=== PATIENT | female | born 1945 | race Caucasian/White ===

== ENCOUNTER 2024-08-18 18:02 | Inpatient (IN) | payer OTHER ==
[~2024-08-18] VITALS: Ht 157.5 cm; Wt 79.8 kg
[2024-08-18] MEDS: 0.9%NACL 1000ML 1,000 ML IV ONE (18:39)
[2024-08-18 18:44] LABS: BASOPHILS # (AUTO) 0.03 K/uL (0.00-0.20); BASOPHILS % (AUTO) 0.4 % (0.0-5.0); HEMATOCRIT 44.7 % (36-48); IMMATURE GRANULOCYTE ABSOLUTE 0.02 K/uL (0-1); LYMPHOCYTES # (AUTO) 0.5 K/uL (1.0-4.8); LYMPHOCYTES % (AUTO) 7.9 % (21.0-51.0); MEAN CORPUSCULAR HEMOGLOBIN 30.8 pg (27.0-33.0); MEAN CORPUSCULAR HGB CONC 34.2 g/dL (32.0-36.0); MEAN CORPUSCULAR VOLUME 90.1 fL (79-99); MONOCYTES # (AUTO) 0.7 K/uL (0.1-1.0); MONOCYTES % (AUTO) 11.1 % (3.0-13.0); NEUTROPHILS # (AUTO) 5.4 K/uL (1.8-7.7); NEUTROPHILS % (AUTO) 80.3 % (40.0-77.0); PLATELET COUNT (AUTO) 212 K/uL (130-400); RED BLOOD CELL COUNT(AUTO) 4.96 MIL/uL (4.00-5.50); RED CELL DISTRIBUTION WIDTH 13.7 % (11.0-15.5); WHITE BLOOD COUNT (AUTO) 6.7 K/uL (4.8-10.8)
--- NOTE | 2024-08-18 18:52 | ERN ---
General Chief Complaint: Weakness Stated Complaint: WEAKNESS Time Seen by MD: 18:05 History of Present Illness Initial Comments 79-year-old female presents for a near syncopal episode. Patient reports that she was not eating today or drank because she was not feeling well. She tried to stand and she had a near syncopal episode. She fell back. No injuries or hitting her head. She reports she felt he had to get up. She denies any fevers, sore throat, cough congestion, vomiting or diarrhea. She reports that she thinks she is dehydrated. She does have a significant history of breast cancer treated with radiation. She does not take any medications currently. Allergies: Coded Allergies: No Known Drug Allergies (Unverified Allergy, Unknown, 08/18/24) Past Medical History Past Medical History: Cancer Past Surgical History: Other Surgical History Other: R BREAST CANCER ROS Dictation CONSTITUTIONAL: Weakness and fatigue HEAD/FACE: No signs of trauma. EENT: No eye pain, no blurred vision, no tearing, no double vision, no ear pain, no ear discharge, no nose pain, no nasal congestion, no throat pain, no throat swelling, no mouth pain. RESPIRATORY: No cough, no orthopnea, no SOB, no stridor, no wheezing. CARDIOVASCULAR: No chest pain, no edema, no palpitations, no syncope. GASTROINTESTINAL/ABDOMINAL: No abdominal pain, no constipation, no diarrhea, no nausea, no vomiting. GENITOURINARY: No abnormal discharge, no dysuria, no frequent urination, no hematuria. No complaints of pain in the genitals. MUSCULOSKELETAL: No back pain, no gout, no joint pain, no joint swelling, no muscle pain, no muscle stiffness, no neck pain. INTEGUMENTARY: No change in color, no change in hair/nails, no dryness, no lesion, no lumps, no rash. NEUROLOGICAL/PSYCH: No anxiety, not depressed, no emotional problem, no headache, no numbness, no pre-existing deficit, no history of seizures, no tremors, no weakness. HEMATOLOGIC/LYMPHATIC: Not anemic, no history of blood clots, no apparent bleeding, no bruising, glands not swollen. All Systems Negative, Except as Noted. Physical Exam Physical Exam Dictation VITAL SIGNS: Reviewed. GENERAL APPEARANCE: Alert, oriented x3, no acute distress. HEAD AND FACE: Non-traumatic. EYES: PERRL, pink conjunctivas, eyelid no trauma, anterior chamber clear. EARS: Pinnas intact and no signs of trauma or erythema. Ear canals clear and no discharge. TMs no erythema. NOSE: No discharge, no bleeding. OROPHARYNX: Mouth normal, teeth no caries, tongue pink. Pharynx clear, no erythema. Tonsils no exudates, no abscesses noted. Mucous membrane moist. NECK: Supple, non-tender, no thyromegaly, no masses, no JVD, no bruits. BREAST: Deferred. CHEST: No tenderness, no crepitus, no paradoxical movement, no retractions. LUNGS: Clear, well-ventilated, symmetric, no rales, no wheezing, no rhonchi, no stridor, good breath sounds bilaterally. HEART: Regular rate, regular rhythm, no murmur, no gallops. VASCULAR: No peripheral edema. ABDOMEN: Soft, positive bowel sounds, nondistended, no guarding, nontender, no rebound, no masses no hepatomegaly, no splenomegaly, no Luna's sign, no hernias. RECTAL: Deferred. GENITAL: Deferred. NEUROLOGICAL: Normal speech, gross motor function intact, gross sensory function intact. MUSCULOSKELETAL: Neck nontender, full range of motion, back nontender, full range of motion. EXTREMITIES: Nontender, full range of motion. SKIN: Color pink, dry, no turgor, no rash, no lacerations, no abrasions, no contusions. LYMPHATICS: Deferred. Results Laboratory and Microbiology Lab and Micro Result Laboratory Tests Test 08/18/24 18:26 08/18/24 19:48 08/18/24 20:05 White Blood Count 6.7 K/uL (4.8-10.8) Red Blood Count 4.96 MIL/uL (4.00-5.50) Hemoglobin 15.3 g/dL (12.0-16.0) Hematocrit 44.7 % (36-48) Mean Corpuscular Volume 90.1 fL (79-99) Mean Corpuscular Hemoglobin 30.8 pg (27.0-33.0) Mean Corpuscular Hemoglobin Concent 34.2 g/dL (32.0-36.0) Red Cell Distribution Width 13.7 % (11.0-15.5) Platelet Count 212 K/uL (130-400) Mean Platelet Volume 9.6 fL (7.5-10.5) Immature Granulocyte % (Auto) 0.3 % (0-1) Neutrophils (%) (Auto) 80.3 % (40.0-77.0) H Lymphocytes (%) (Auto) 7.9 % (21.0-51.0) L Monocytes (%) (Auto) 11.1 % (3.0-13.0) Eosinophils (%) (Auto) 0.0 % (0.0-8.0) Basophils (%) (Auto) 0.4 % (0.0-5.0) Neutrophils # (Auto) 5.4 K/uL (1.8-7.7) Lymphocytes # (Auto) 0.5 K/uL (1.0-4.8) L Monocytes # (Auto) 0.7 K/uL (0.1-1.0) Eosinophils # (Auto) 0.00 K/uL (0.00-0.70) Basophils # (Auto) 0.03 K/uL (0.00-0.20) Absolute Immature Granulocyte (auto 0.02 K/uL (0-1) Nucleated Red Blood Cells 0.0 % (0.0-0.19) White Cell Morphology Comment See comments Prothrombin Time 11.5 SEC (9.6-11.6) Prothromb Time International Ratio 1.03 (0.85-1.15) Sodium Level 135 mmol/L (136-145) L Potassium Level 3.8 mmol/L (3.5-5.1) Chloride Level 99 mmol/L (101-111) L Carbon Dioxide Level 25 mmol/L (21-32) Blood Urea Nitrogen 12 mg/dL (7-18) Creatinine 0.9 mg/dL (0.5-1.0) Glomerular Filtration Rate Calc 65 mL/min (>90) Random Glucose 162 mg/dL (70-105) H Total Calcium 9.2 mg/dL (8.5-10.1) Total Creatine Kinase 405 U/L (21-232) *H Troponin I High Sensitivity 131.1 ng/L (4-50) *H 127 ng/L (4-50) *H B-Type Natriuretic Peptide 354 pg/mL (0-100) H Influenza Type A Antigen Positive For Type A Influenza Type B Antigen Negative For Type B SARS-CoV-2, RNA, NAAT NEGATIVE SARS CoV-2 Group A Streptococcus Rapid negative (NEGATIVE) Labs Reviewed?: Yes EKG/XRAY/US/CT/MRI EKG Comment 08/18/2024 time 18:34 vent rate 99 sinus rhythm pr [address] wave elevation or depression X-RAY Comment [facility] [address] [place] [address] IMAGING REPORT Signed PATIENT: BAHMAN LOCKE MR#: [id number] : 1945 SEX: F AGE: 79 LOCATION: [facility] ORDER 16 STATUS: [facility] ER REPORT#: [id number] SERVICE 16 REASON: CP ORDERING PHYSICIAN: YAKOV LUCIANO DO PROCEDURE: CXR1VW - CHEST 1VW CHEST 1VW REASON: CP COMPARISON: None. FINDINGS: Single view of the chest was obtained. Lungs are clear. Heart size is normal. There is no pulmonary vascular congestion. Mediastinum and bony thorax appear unremarkable. IMPRESSION: 1. Normal single view chest x-ray. DICTATED BY: LIVIA CAO MD DATE: 08/18/241856 ELECTRONICALLY SIGNED BY: LIVIA CAO MD DATE: 08/18/241901 MDM MDM: Differential diagnosis: NSTEMI, ACS, elevated CK, dehydration Rationale: Tests considered and ordered secondary to shared decision making include: labs, ECG and radiology Previous outside records reviewed: Old ER visits. Risk of complication and/or morbidity or mortality of patient management: None Medications-Per medication reconciliation Need for hospitalization: Patient does meet criteria for hospitalization. Need for emergency major/minor surgery: No There are no social concerns with this patient. Prescription drug management Prescriptions will include symptomatic care Patient's prior external medical records from other ER visits were reviewed by me as indicated. Prior testing and results from previous visits were reviewed. Prior tests were taken into account with medical decision making and resource utilization, independent historian/historians were used to obtain complete medic al history. I independently interpreted the test that were performed, results were reviewed by me and considered findings on radiology if ordered. Medical management and examination interpretation discussions were had by me with other qualified healthcare professionals as indicated for the patient's care. Patient will be admitted under the care of hospitalist group. ED Course Orders Procedure Category Date Status Time Cardiac Panel LAB 08/18/24 Complete 18:13 Cbc With Differential LAB 08/18/24 Complete 18:13 Basic Metabolic Panel LAB 08/18/24 Complete 18:13 12 Lead Ekg Tracing- EKG 08/18/24 Resulted Technical 18:13 0.9%Nacl 1000ml (Ns PHA 08/18/24 Complete 1000ml) 18:30 Chest 1vw RAD 08/18/24 Resulted 18:17 Troponin I High LAB 08/18/24 Complete Sensitivity 19:23 Covid Rna Naat LAB 08/18/24 Complete 19:28 Influenza Type A & B, LAB 08/18/24 Complete Rapid 19:28 Rapid (Group A Strep) LAB 08/18/24 Complete 19:28 Aspirin 325mg Ec Tab PHA 08/18/24 Complete (Aspirin 325mg Ec T 19:30 B-Type Natriuretic LAB 08/18/24 Complete Peptide 19:29 Prothrombin Time With LAB 08/18/24 Complete INR 19:29 Vital Signs(Adult CPOE 08/18/24 Transmitted Hospitalist) 20:22 Nurse To Enter Home CPOE 08/18/24 Transmitted Medication 20:22 Admit Orders ADM 08/18/24 Transmitted 20:22 Vital Signs(Adult CPOE 08/18/24 Transmitted Hospitalist) 20:22 Nurse To Enter Home CPOE 08/18/24 Transmitted Medication 20:22 Admit Orders ADM 08/18/24 Transmitted 20:22 Edm Admit Bridge Order ADM 08/18/24 Transmitted 20:22 Current Medications Medications (Trade) Dose Ordered Sig/Veronica Route PRN Reason Start Time Stop Time Status Last Admin Dose Admin Aspirin (Aspirin 325mg Ec Tab) 325 mg ONCE ONCE PO 08/18/24 19:30 08/18/24 19:31 DC 08/18/24 19:37 Sodium Chloride 1,000 ml @ 0 mls/hr ONCE ONCE IV 08/18/24 18:30 08/18/24 18:31 DC 08/18/24 18:39 Vital Signs Date Time Temp Pulse Resp B/P (MAP) Pulse Ox O2 Delivery O2 Flow Rate FiO2 08/18/24 19:22 96 18 153/80 96 Room Air* 0 21 08/18/24 18:06 100.2 103 15 153/85 95 Room Air* 0 21 08/18/24 18:04 100.2 103 15 153/85 95 Room Air 0 DX & DISP Disposition: Inpatient Decision to Admit Time: 20:11 Departure Impression: Primary Impression: ACS (acute coronary syndrome) Additional Impressions: Dehydration, Elevated CK, Syncope, Elevated troponin I level Critical Time: 30 minutes (Critical Care Procedure NoteAuthorized and Performed by: meTotal critical care time: Approximately 36 minutesDue to a high probability of clinically significant, life threatening deterioration, the patient required my highest level of preparedness to intervene emergently and I personally spent this critical care time directly and personally managing the patient. This critical care time included obtaining a history; examining the patient; pulse oximetry; ordering and review of studies; arranging urgent treatment with development of a management plan; evaluation of patient's response to treatment; frequent reassessment; and, discussions with other providers.This critical care time was performed to assess and manage the high probability of imminent, life-threatening deterioration that could result in multi-organ failure. It was exclusive of separately billable procedures and treating other patients and teaching time.Please see MDM section and the rest of the note for further information on patient assessment and treatment.) Condition: Stable Referrals: NONE (PCP) YAKOV LUCIANO DO Aug 18, 2024 18:52 SASHA KNUTSON MD Aug 18, 2024 20:00
[2024-08-18 19:01] LABS: CREATININE 0.9 mg/dL (0.5-1.0); POTASSIUM 3.8 mmol/L (3.5-5.1)
--- NOTE | 2024-08-18 19:02 | HMCIMG ---
CHEST 1VW REASON: CP COMPARISON: None. FINDINGS: Single view of the chest was obtained. Lungs are clear. Heart size is normal. There is no pulmonary vascular congestion. Mediastinum and bony thorax appear unremarkable. IMPRESSION: 1. Normal single view chest x-ray.
[2024-08-18] MEDS: ASPIRIN 325MG EC TAB PO ONE (19:37)
[2024-08-18 19:47] LABS: INR 1.03 (0.85-1.15); PROTHROMBIN TIME 11.5 SEC (9.6-11.6)
[2024-08-18 20:49] LABS: RAPID GROUP A STREP negative (NEGATIVE)
[2024-08-18 20:50] LABS: SARS-CoV-2, RNA, NAAT NEGATIVE SARS CoV-2 (NEGATIVE)
--- NOTE | 2024-08-18 20:53 | HP ---
History of Present Illness Reason for Visit: syncope History of Present Illness Ms. bazzi is a 79-year-old female that was seen and examined today on 08/18/2024. Patient is a good historian and personal health. Patient reported to the emergency department physician that she came over here for syncope. Right now she is saying that she came to the hospital for a complaint of cough. Onset was two days ago. Location is to lungs. Duration is on and off. Symptoms are aggravated with physical activity. Character is described as nonproductive. There was no alleviating factors. Today in the emergency department troponin 131.1, CK 405, patient positive for influenza a, no urinalysis has been collected or sent to lab, chest x-ray is unremarkable. Past Medical History ADDITIONAL PAST MEDICAL HISTORY: [Hypertension] SOCIAL HISTORY: [Negative for smoking, alcohol use, drug use] SURGICAL HISTORY: [Right mastectomy] Review of Systems General: No Fever, No Chills, No Night Sweats, No Fatigue, No Malaise, No Appetite, No Other HEENT: No Head Aches, No Visual Changes, No Eye Pain, No Ear Pain, No Dysphasia, No Sinus Congestion, No Post Nasal Drip, No Sore Throat, No Other Pulmonary: No Dyspnea; Cough; No Pleuritic Chest Pain, No Other Cardiovascular: Lt Headedness; No: Chest Pain, Palpitations, Orthopnea, Paroxysmal Noc. Dyspnea, Edema, Other Gastrointestinal: No: Nausea, Vomiting, Abdominal Pain, Diarrhea, Constipation, Melena, Hematochezia, Other Genitourinary: No Dysuria, No Frequency, No Incontinence, No Hematuria, No Retention, No Other Musculoskeletal: No: other, neck pain, shoulder pain, arm pain, back pain, hand pain, leg pain, foot pain Skin: No Urticaria, No Rash, No Other Neurological: No: Weakness, Numbness, Incoordination, Change in speech, Confusion, Seizures, Other Allergies: Coded Allergies: No Known Drug Allergies (Unverified Allergy, Unknown, 08/18/24) Exam Vital Signs Vital Signs Date Time Temp Pulse Resp B/P (MAP) Pulse Ox O2 Delivery O2 Flow Rate FiO2 08/18/24 19:22 96 18 153/80 96 Room Air* 0 21 08/18/24 18:06 100.2 General Appearance: Alert, Oriented X3, Cooperative, No acute distress HEENT: Atraumatic, EOMI Respiratory: Clear to auscultation, Normal air movement, NL respiratory effort Cardiovascular: Regular rate, Regular rhythm, Normal S1, Normal S2 Abdominal: Normal bowel sounds, Soft, No tenderness Extremities: No edema Skin: No significant lesion Neuro: Normal speech, Strength at 5/5 X4 ext, Sensation intact, Cranial nerves 3-12 NL Psych/Mental Status: Mental status NL, Mood NL, Thoughts/Content NL Assessment/Plan ASSESSMENT: [ Syncope, POA Influenza A positive Elevated troponin, POA Elevated CK, POA] PLAN: [ ] Admit patient to medical-surgical floor as inpatient status. Place patient on telemetry monitoring. Check orthostatic vital signs. Neuro checks every 4 hours. Fall precautions 2D echo in a.m.. Ultrasound carotid duplex. Start Tamiflu 75 mg by mouth twice daily. Supportive measures with Tylenol and guaifenesin DuoNebs every 6 hours Administer aspirin 162 mg by mouth times 1 dose Continue aspirin 81 mg by mouth once daily Nitropaste 0.5 inches anterior chest wall every 8 hours Trend troponin every 6 hours x 3 sets Supplemental oxygen to maintain O2 saturation greater than 92% Consult cardiology if any elevation in troponin or troponin uptrending IV fluid maintenance therapy lactated Ringer's at 75 mL/HR. Recheck CK in a.m. GI prophylaxis, famotidine 20 mg by mouth once daily. DVT prophylaxis, Lovenox 40 mg subcutaneously once daily. ADVANCED CARE PLANNING 1. Which of the following were discussed? Hospice Care - Yes Therapeutic options - Yes Advance Directives - Yes- patient states that she does not have any advance directives in place at this time, however her neighbor Alma can make decisions for her if she becomes unable. Other discussions - patient wishes to remain a full code at this time 2. Discussed with who? Patient 3. Voluntary nature of this service was explained to the patient? Yes 4. Amount of time spent - ___ 16 minutes ____ 5. Reviewed by Physician? (if this service was performed by NPP) Yes This document was generated in part using voice recognition software, occasional wrong word or sound alike substitutions may have occurred due to the inherent limitations of voice recognition software. Read the chart carefully and recognize using context, where the substitutions have occurred. Although every effort was made to edit the content, sales rep and typing errors may occur ATTESTATION BY PHYSICIAN I have seen and examined the patient. I reviewed the documentation, medical decision making, and treatment plan as noted by the mid-level provider above. I agree with the findings and plan of care. [facility] Aug 18, 2024 20:53
[2024-08-18] MEDS ORDERED: morPHINE 2 MG SYG IVP PRN (21:00)
[2024-08-18] MEDS ORDERED: ondanSETRON 4MG INJ IV PRN (21:00)
[2024-08-18] MEDS ORDERED: hydrALAZine 20MG/ML VIAL IV PRN (21:00)
--- NOTE | 2024-08-18 21:05 | EKG ---
[facility] Test Date: 2024-08-18 Test Time: 18:34:26 Pat Name: BAHMAN LOCKE Department: [facility] Room: 430 Gender: F Applications Support Analyst: [id number] : 1945 Requested By: YAKOV LUCIANO Order Number: [id number] Reading MD: Skinny Reyez Measurements Intervals [place] Rate: 99 P: 56 MD: 251 QRS: -6 QRSD: 98 T: 90 QT: 351 QTc: 450 Interpretive Statements Sinus rhythm Prolonged MD interval Left ventricular hypertrophy Nonspecific T abnormalities, lateral leads ST elevation, consider anterior injury No previous ECG available for comparison Electronically Signed On 08-19-2024 12:17:09 SILK FOLDER by Skinny Reyez Please click the below link to view image of tracing.
[2024-08-18 21:07] LABS: INFLUENZA TYPE B Negative For Type B (NEGATIVE)
[2024-08-18 21:10] LABS: INFLUENZA TYPE A Positive For Type A (NEGATIVE)
[2024-08-18] MEDS: ASPIRIN 81MG CHEW TAB PO ONE (21:24)
[2024-08-18] MEDS: NITROGLYCERIN 1GM OINT 1 INCH/1GM TD SCH (21:27)
[2024-08-18] MEDS: LACTATED RINGERS 1000ML 1,000 ML IV SCH (21:27)
[2024-08-18 23:23] VITALS: PULSE 87; RESP 18; O2SAT 96
[2024-08-18] MEDS: IpraTROPium/alBUTERol SULFATE 3 ML SOLUTION IH SCH (23:23)
[2024-08-18] MEDS: OSELTAMIVIR PHOSPHATE 75 MG CAP PO ONE (23:42)
[2024-08-18] MEDS: acetaMINOPHEN 325 MG TAB PO PRN (23:43)
[2024-08-19] VITALS (16 sets, daily range): BP systolic 95–133; BP diastolic 51–96; PULSE 74–94; RESP 17–20; TEMP 97.8–100.1; O2SAT 20–98
[2024-08-19 02:38] LABS: BASOPHILS # (AUTO) 0.02 K/uL (0.00-0.20); BASOPHILS % (AUTO) 0.4 % (0.0-5.0); HEMATOCRIT 37.1 % (36-48); IMMATURE GRANULOCYTE ABSOLUTE 0.01 K/uL (0-1); LYMPHOCYTES # (AUTO) 1.3 K/uL (1.0-4.8); LYMPHOCYTES % (AUTO) 24.8 % (21.0-51.0); MEAN CORPUSCULAR HEMOGLOBIN 30.8 pg (27.0-33.0); MEAN CORPUSCULAR HGB CONC 33.4 g/dL (32.0-36.0); MEAN CORPUSCULAR VOLUME 92.3 fL (79-99); MONOCYTES # (AUTO) 0.9 K/uL (0.1-1.0); MONOCYTES % (AUTO) 17.3 % (3.0-13.0); NEUTROPHILS # (AUTO) 3.1 K/uL (1.8-7.7); NEUTROPHILS % (AUTO) 57.3 % (40.0-77.0); PLATELET COUNT (AUTO) 194 K/uL (130-400); RED BLOOD CELL COUNT(AUTO) 4.02 MIL/uL (4.00-5.50); RED CELL DISTRIBUTION WIDTH 13.6 % (11.0-15.5); WHITE BLOOD COUNT (AUTO) 5.3 K/uL (4.8-10.8)
[2024-08-19 03:02] LABS: MAGNESIUM 1.7 mg/dL (1.80-2.40); PHOSPHORUS 4.1 mg/dL (2.5-4.9)
[2024-08-19] MEDS: PoTASSium chloRIDE 20MEQ/100ML 100 ML IV PRN (03:29)
[2024-08-19] MEDS: PoTASSium chloRIDE 20MEQ ER 20 MEQ ERTAB PO PRN (03:29)
[2024-08-19] MEDS ORDERED: PoTASSium chl 10% ELIXIR 20MEQ 20 MEQ/15 ML UDCUP PO PRN (03:30)
[2024-08-19] MEDS ORDERED: MAGNESIUM 2GM PREMIX 50ML 50 ML IV PRN (03:30)
[2024-08-19] MEDS: OSELTAMIVIR PHOSPHATE 75 MG CAP PO SCH (08:17)
[2024-08-19] MEDS: FAMOTIDINE 20MG TAB PO SCH (08:17)
[2024-08-19] MEDS: ASPIRIN 81 MG EC TAB PO SCH (08:17)
[2024-08-19] MEDS: ENOXAPARIN SODIUM 40 MG/0.4 ML SYRINGE SQ SCH (08:20)
--- NOTE | 2024-08-19 08:33 | HMCIMG ---
ULTRASOUND THE CAROTID ARTERIES INDICATION: Near syncope TECHNIQUE: Interrogation of the right and left common, internal, and external carotid systems were performed using grayscale, color, and spectral Doppler. COMPARISON: None FINDINGS: (CM/SEC) RIGHT CCA: 56 ICA: 69 ECA: 80 ICA/CCA ratio: 1.2 LEFT CCA: 72 ICA: 53 ECA: 81 ICA/CCA ratio: 0.7 VERTEBRAL ARTERIES: Antegrade flow bilaterally. Normal Color Doppler flow completely fills the lumen of all major vessels without clot or plaques demonstrated. Normal high resistance flow pattern is present throughout all major vessels on Spectral Doppler analysis. IMPRESSION: No evidence for high-grade flow-rate limiting stenosis. Parameters as reported.
--- NOTE | 2024-08-19 11:39 | PN ---
[facility] PROGRESS NOTE Date of Service: Aug 19, 2024 Time of Service: 11:35 SUBJECTIVE: [79-year-old female presented to the emergency department with extreme weakness and fatigue. She was admitted for positive Flu A, acute rhabdomyolysis and elevated troponins. Patient stated that she feels a little bit better from the time she was admitted. We will continue to monitor, continue with IV antibiotics and trending labs.] REVIEW OF SYSTEMS CONSTITUTIONAL: Denies fevers, chills, or night sweats. No unintentional weight loss reported. NEUROLOGICAL: Denies headache, amaurosis fugax, motor weakness, sensory deficit, vertigo/spinning sensation, gait abnormalities, or tremors. ENT: No hearing loss, otalgia, otorrhea, rhinitis, rhinorrhea, hoarseness, or sore throat. CARDIOVASCULAR: Denies any exertional angina, dyspnea on exertion, orthopnea, paroxysmal nocturnal dyspnea, palpitations, life-threatening arrhythmias, claudication. PULMONARY: Denies any shortness of breath, cough, phlegm/sputum, hemoptysis, pleuritic chest pain. SLEEP: Denies morning headaches, daytime somnolence or napping. Denies di fficulty falling asleep, staying asleep, waking from sleep. Denies knowledge of snoring. GASTROINTESTINAL: Denies any type of dysphagia to either liquids or solids. Denies nausea, vomiting, pyrosis, early satiety, abdominal pain, diarrhea, constipation, or changes in stool consistency or caliber. Denies coffee-ground emesis, hematemesis, hematochezia, or melanotic stools. GENITOURINARY: Denies frequency, urgency, nocturia, hematuria or incontinence (Storage/Irritative symptoms.) Low urinary stream, straining to void, urinary intermittency or hesitancy, splitting of the voiding stream, terminal dribbling. ENDOCRINOLOGIC: Denies polyuria, polydipsia, polyphagia or heat/cold intolerances. HEMATOLOGIC: Denies thrombophilia/previous clots, or coagulopathy/bleeding disorders. ONCOLOGIC: Denies personal history of malignancy. DERMATOLOGIC: Denies rashes or pruritus. PSYCHIATRIC: Denies any suicidal or homicidal ideation. Denies hallucinations. PHYSICAL EXAM GENERAL APPEARANCE: The patient is awake, alert, and oriented, in no acute cardiopulmonary distress. NEUROLOGICAL: Cranial nerves II-XII grossly intact. Motor is 5/5 in bilateral upper and lower extremities proximal to distal. No sensory deficits. HEENT: Face is symmetric. Pupils are equal and reactive. Extraocular movements are intact. NECK: Supple. No JVD. No thyromegaly. No submental, submandibular, pre- /postauricular, occipital or supraclavicular lymphadenopathy. CHEST: Normal chest expansion. No Telemetry. LUNGS: Absence of any rales, rhonchi or any wheezing. CARDIOVASCULAR: Regular. S1 and S2 normal. No appreciable rubs, murmurs or gallops. ABDOMEN: Soft, nontender, and nondistended. There is no rebound, voluntary guarding, or rigidity. : Deferred. No Tubbs. EXTREMITIES: Non-edematous and not cyanotic. No clubbing. Good capillary refill. SKIN: No skin breakdown. Vital Signs (last 8hr) Date Time Temp Pulse Resp B/P (MAP) Pulse Ox O2 Delivery O2 Flow Rate FiO2 08/19/24 11:23 98.6 80 18 106/68 99 Room Air 08/19/24 11:01 78 18 08/19/24 11:01 78 18 N/A Room Air 21 08/19/24 07:34 87 101/59 08/19/24 07:32 78 105/68 08/19/24 07:30 98.1 74 18 95/51 100 Room Air 08/19/24 07:11 86 18 08/19/24 07:10 86 18 N/A Room Air 08/19/24 04:19 97.9 85 20 128/96 94 Room Air LABS: Laboratory: Test 08/19/24 10:05 08/19/24 02:19 08/18/24 19:48 08/18/24 18:26 Range/Units Troponin I High Sensitivity 118 *H 4-50 ng/L White Blood Count 5.3 4.8-10.8 K/uL Red Blood Count 4.02 4.00-5.50 MIL/uL Hemoglobin 12.4 12.0-16.0 g/dL Hematocrit 37.1 36-48 % Mean Corpuscular Volume 92.3 79-99 fL Mean Corpuscular Hemoglobin 30.8 27.0-33.0 pg Mean Corpuscular Hemoglobin Concent 33.4 32.0-36.0 g/dL Red Cell Distribution Width 13.6 11.0-15.5 % Platelet Count 194 130-400 K/uL Mean Platelet Volume 9.5 7.5-10.5 fL Immature Granulocyte % (Auto) 0.2 0-1 % Neutrophils (%) (Auto) 57.3 40.0-77.0 % Lymphocytes (%) (Auto) 24.8 21.0-51.0 % Monocytes (%) (Auto) 17.3 H 3.0-13.0 % Eosinophils (%) (Auto) 0.0 0.0-8.0 % Basophils (%) (Auto) 0.4 0.0-5.0 % Neutrophils # (Auto) 3.1 1.8-7.7 K/uL Lymphocytes # (Auto) 1.3 1.0-4.8 K/uL Monocytes # (Auto) 0.9 0.1-1.0 K/uL Eosinophils # (Auto) 0.00 0.00-0.70 K/uL Basophils # (Auto) 0.02 0.00-0.20 K/uL Absolute Immature Granulocyte (auto 0.01 0-1 K/uL Nucleated Red Blood Cells 0.0 0.0-0.19 % Sodium Level 140 136-145 mmol/L Potassium Level 3.0 *L 3.5-5.1 mmol/L Chloride Level 104 101-111 mmol/L Carbon Dioxide Level 27 21-32 mmol/L Blood Urea Nitrogen 12 7-18 mg/dL Creatinine 1.0 0.5-1.0 mg/dL Glomerular Filtration Rate Calc 57 >90 mL/min Random Glucose 100 70-105 mg/dL Total Calcium 8.3 L 8.5-10.1 mg/dL Phosphorus Level 4.1 2.5-4.9 mg/dL Magnesium Level 1.70 L 1.80-2.40 mg/dL Total Creatine Kinase 779 #*H 21-232 U/L Influenza Type A Antigen Positive For Type A *A NEGATIVE Influenza Type B Antigen Negative For Type B NEGATIVE SARS-CoV-2, RNA, NAAT NEGATIVE SARS CoV-2 NEGATIVE Group A Streptococcus Rapid negative NEGATIVE White Cell Morphology Comment See comments Prothrombin Time 11.5 9.6-11.6 SEC Prothromb Time International Ratio 1.03 0.85-1.15 B-Type Natriuretic Peptide 354 H 0-100 pg/mL Current Medications Medications (Trade) Dose Ordered Sig/Veronica Route PRN Reason Start Time Stop Time Status Last Admin Dose Admin Acetaminophen (TYLenol 325MG TAB) 650 mg Q6H PRN PO TEMPERATURE GREATER THAN 101.5 08/18/24 21:00 09/17/24 20:59 08/18/24 23:43 650 MG Albuterol (DUOneb) 1 UDVIAL [id number] IH 08/19/24 00:00 09/18/24 00:00 08/19/24 11:00 1 UDVIAL Aspirin (Aspirin 81mg Ec Tab) 81 mg DAILY PO 08/19/24 09:00 09/18/24 08:59 08/19/24 08:17 81 MG Enoxaparin Sodium (Lovenox) 40 mg DAILY SQ 08/19/24 09:00 09/18/24 08:59 08/19/24 08:20 40 MG Famotidine (Pepcid 20mg Tab) 20 mg DAILY PO 08/19/24 09:00 09/18/24 08:59 08/19/24 08:17 20 MG Guaifenesin (RobiTUSSin SUGAR-FREE 100 MG/ 5 ML UDCUP) 400 mg Q4H PRN PO cough 08/18/24 22:30 09/17/24 22:29 Hydralazine HCl (APRESOLine 20MG INJ) 10 mg Q6H PRN IV For:SBP above 160;DBP above 90 08/18/24 21:00 09/17/24 20:59 Lactated Ringer's 1,000 ml @ 75 mls/hr [id number] IV 08/18/24 21:00 09/17/24 20:59 08/18/24 21:27 75 MLS/HR Magnesium Sulfate 50 ml @ 0 mls/hr PROTOCOL PRN IV h 08/19/24 03:30 09/18/24 03:29 Morphine Sulfate (morPHINE 2MG SYG) 2 mg Q4H PRN IVP SEVERE PAIN (7-10) 08/18/24 21:00 08/25/24 20:59 Nitroglycerin (Nitroglycerin 1gm Oint) 0.5 inch Q8H TD 08/18/24 21:00 09/17/24 20:59 08/19/24 05:29 0.5 INCH Ondansetron HCl (zoFRAN 4MG INJ) 4 mg Q6H PRN IV NAUSEA/VOMITING 08/18/24 21:00 09/17/24 20:59 Oseltamivir Phosphate (Tamiflu) 75 mg BID PO 08/19/24 09:00 08/24/24 08:59 08/19/24 08:17 75 MG Potassium Chloride 100 ml @ 100 mls/hr AD PRN IV POTASSIUM PROTOCOL 08/19/24 03:30 09/18/24 03:29 08/19/24 03:29 100 MLS/HR Potassium Chloride (K-Dur/Klor-Con 20meq) 20 meq AD PRN PO POTASSIUM PROTOCOL 08/19/24 03:30 09/18/24 03:29 08/19/24 08:18 20 MEQ Potassium Chloride (KCl 10% Elixir 20meq/15ml) 20 meq AD PRN PO POTASSIUM PROTOCOL 08/19/24 03:30 09/18/24 03:29 DIAGNOSTICS / RADIOLOGY: [ ] ASSESSMENT: [Sepsis, POA Positive for influenza A, POA Acute rhabdomyolysis, POA NSTEMI versus type 2 CA, POA Suspected troponin leak secondary to sepsis/influenza A Hypokalemia, POA Hyponatremia, POA Hypomagnesemia, POA ] PLAN: [Admit to medical telemetry Continue with Tamiflu Continue with IV fluids with LR at 50 mL/hour We will continue to trend TCK and troponin We will consult cleaning team member We will follow up on 2DECHO Continue to monitor electrolytes and replete as necessary. C/w Aspirin and BB, we will start diuretics with Lasix 40 mg iv daily We will c/w GI ppx with famotidine and lovenox We will repeat labs in am She is a fullcode Discussed case with Dr. Taylor above plan was formulated. ] ATTESTATION BY PHYSICIAN I have seen and examined the patient. I reviewed the documentation, medical decision making, and treatment plan as noted by the mid-level provider above. I agree with the findings and plan of care. JUDY TAYLOR MD, JANICE B [facility] Aug 19, 2024 11:39
--- NOTE | 2024-08-19 12:53 | NUR ---
DC PLAN VISITED WITH PATIENT. DIFFICULT TO TALK TO PATIENT. APPEARS [place] SECOND LANGUAGE. PATIENT LIVES ALONE. INDEPENDENT ABLE TO PERFORM ADL'S. PATIENT HAS NO SER SERVICES. WALKER AVAILABLE. SAID HAS HELP AT HOME IF NEEDED. NO PCP SAID HAS NOT BEEN TO MD IN OVER 3 YEARS. Addendum: 08/19/24 at 1254 by DONITA DINH RN CM Amended: Links added.
--- NOTE | 2024-08-19 15:32 | CONS ---
[facility] Cardiology Consultation Note Cardiology consult dictated for Romero Gilbert MD The service 08/19/2024 Reason for consult elevated troponin History of present illness: This is a 79-year-old female presented for evaluation of cough. She reports on developed severe weakness and was unable to get up out of bed. She has been diagnosed with influenza A. Cardiology consult was requested due to elevated troponin. Troponin high sensitivity 131 with a CK of 405 and a BNP of 354. Twelve lead EKG sinus rhythm heart rate of 99 beats per minute and a first-degree AV block. No acute findings. Today has a creatinine kinase of 779 with troponin high sensitivity of 127, 182 and 118. Patient denies chest pain no dizziness syncope or palpitations. Past medical history: Positive for hypertension. Breast cancer and denae motherapy. Negative for CVA TIA no PE no DVT no liver kidney or thyroid disease. Past surgical history: Right mastectomy. Social history: Denies tobacco alcohol or illicit drug use Family history: Noncontributory Review of blood work: BNP 354, Basic metabolic panel with a sodium of 140, potassium 3.0, BUN of 12 creatinine of 1.0 GFR of 57. Magnesium is 1.70 with a total CK of 779. Troponin high sensitivity 131, 182, 118. CBC hemoglobin of 12.4 hematocrit 37.1 platelets of 194 white blood cells of 5.3. Current medications: Aspirin 81 mg daily, Lovenox 40 mg daily subQ, Tamiflu 75 mg p.o. b.i.d. Review of systems: 14 point review of systems performed pertinent positives and negatives discussed in HPI Physical exam: Blood pressure 106/68 heart rate of 80 beats per minute and regular normal S1-S2 no rubs gallops noted. Has a 1/6 systolic murmur with no diastolic component over tricuspid area. Neck is supple no jugular vein distention no carotid bruits. Bilateral breath sounds with scattered crackles. Lower extremities no edema. Patient is alert awake and oriented. All others within normal limits. Assessment: Influenza A positive Elevated troponin (131, 127, 182, 118) Elevated creatinine kinase 779 Cardiac murmur Hypokalemia Hypomagnesemia Hypertension History of right breast cancer status post mastectomy Plan: 79-year-old female presented for evaluation of generalized weakness and cough. Symptoms started on and progressively became worse prompted her to seek further medical evaluation. She has been diagnosed with influenza a and placed on Tamiflu. Potassium and magnesium have been covered with sliding scale today. Cardiology consult was requested due to elevated troponin which is in a flat pattern in trending down. CK initially of 405 and now 779. She on exam has a systolic murmur with no diastolic component and a 2D echocardiogram has been ordered by primary team. Patient currently has no complaints further recommendations once testresults are available for review. Addendum: The systolic murmurs consistent with aortic stenosis. Preliminary review of the echo shows severe concentric LVH consistent with a hypertrophic cardiomyopathy. Finally the troponin elevations raise the possibility of coronary artery disease. She is active influenza at this time and we will recommend stabilization medically. I will review the complete echo study when available. The patient will ultimately require right and left heart catheterization either prior to discharge or as an outpatient after recovery from her influenza. ATTESTATION BY PHYSICIAN I have seen and examined the patient. I reviewed the documentation, medical decision making, and treatment plan as noted by the mid-level provider above. I agree with the findings and plan of care. ROMERO GILBERT MD, [facility] Aug 19, 2024 15:32 ROMERO GILBERT MD Aug 19, 2024 16:05
--- NOTE | 2024-08-19 16:32 | HMCSR ---
APPROVED REPORT EXAM: Two-dimensional and M-mode echocardiogram with Doppler and color Doppler. INDICATION ICD: Near syncope 2D Dimensions RVDd4.2 cmLVEF(%)67.4 (>50%)LVED Vol(simp.)83.1 mL IVSd1.1 (0.7-1.1cm)FS(%)37 %LVES Vol(simp.)26.9 mL LVDd3.8 (3.8-5.6cm)LA (2D)3.8 (1.6-4.0cm)LVEF(%, simp.)68 % PWd1.2 (0.7-1.1cm)Ao Root(2D)2.8 (2.0-3.7cm)LA ESV INDEX (4CH)23.30 mL/m2 IVSs1.4 cmLVOT diam1.8 (1.8-2.4cm)LA ESV INDEX (2CH)43.90 mL/m2 LVDs2.4 (2.5-4.0cm)LA ESV INDEX (BP)33.70 mL/m2 PWs1.7 cm Deformation Strain Apical 418.0 % Apical 216.0 % Apical 319.0 % Global Rcvthx69.0 % M-Mode Dimensions EPSS0.8 cm LA (MM)2.7 (1.6-4.0cm) Ao Root(MM)3.2 (2.0-3.7cm) Aortic Valve AoV Vmax4.7 m/Ej Peak GR90.0 mmHgLVOT VTI0.27 m AoV VTI0.9 mAo Mean GR54.0 mmHgAVA (VTI) 0.8 cm2 AMINTA (VMAX)0.8 cm2 Mitral Valve MV E Vmax85.9 cm/sDECEL Cqkv326 ms MV A Rvji412.6 cm/sP 1/2 T37 ms E/A ratio0.7MVA (PHT)5.9 cm2 TDI E/E' Nicaug58.7E/E' Awqylkk56.0 Medial E' Peak V2.80 cm/sLateral E' Peak V4.10 cm/s Pulmonary Valve PV Vmax1.5 m/s PV Peak GR9.2 mmHg Tricuspid Valve TR Vmax2.1 m/sRAP (EST) 3 hkWhGDPM08.3 mmHg TR Peak GR17.3 mmHg Left Ventricle The left ventricle is normal size. GLS -18.0%. There is normal LV segmental wall motion. Moderate con centric left ventricular hypertrophy. LVEF is 65-70%. Stage I diastolic dysfunction. Right Ventricle The right ventricle is mildly dilated. The right ventricular systolic function is normal. Atria The left atrium size is normal. The right atrium size is normal. Aortic Valve Aortic valve is trileaflet, thickened, calcified with restricted opening. No aortic regurgitation is present. There is severe aortic valvular stenosis. Calculated aortic valve area is .8 cm2 with maximu m pressure gradient of 90 mmHg and mean pressure gradient of 54 mmHg. Mitral Valve Anterior mitral valve leaflet is prolapsed. Moderate mitral valve annular calcification noted. There is no mitral valve regurgitation noted. There is no mitral valve stenosis. Tricuspid Valve The tricuspid valve is normal in structure. There is trace of tricuspid valve regurgitation noted. Pulmonic Valve The pulmonary valve is normal in structure. There is no pulmonic valvular regurgitation. Great Vessels The aortic root is normal in size. The IVC is normal in size and collapses >50% with inspiration. Pericardium There is no pericardial effusion. Other Information Quality : Adequate Conclusion Moderate concentric left ventricular hypertrophy. LVEF is 65-70%. Stage I diastolic dysfunction. Aortic valve is trileaflet, thickened, calcified with restricted opening. There is severe aortic valvular stenosis. Calculated aortic valve area is .8 cm2 with maximum pressure gradient of 90 mmHg and mean pressure gr adient of 54 mmHg.
[2024-08-19] MEDS: cloPIDOgrel 300MG TAB PO ONE (16:43)
[2024-08-19 20:46] LABS: APPEARANCE,URINE CLEAR (CLEAR); BILIRUBIN,URINE NEGATIVE (NEGATIVE); COLOR,URINE LIGHT-YELLOW (YELLOW); GLUCOSE, URINE (UA) NEGATIVE (NEGATIVE); KETONES,URINE NEGATIVE (NEGATIVE); LEUKOCYTE ESTERASE ,URINE NEGATIVE Leu/uL (NEGATIVE); NITRATE,URINE NEGATIVE (NEGATIVE); OCCULT BLOOD,URINE SMALL (NEGATIVE); PROTEIN,URINE NEGATIVE (NEGATIVE); UROBILINOGEN,URINE 0.2 mg/dL (0.2-1.0)
[2024-08-19 20:51] LABS: ADD UA MICROSCOPIC YES
[2024-08-19 20:53] LABS: MUCUS,URINE RARE LPF (None Seen); SQUAMOUS EPITHELIAL CELL,UR RARE /HPF (0-2); WBC,URINE 0-1 /HPF (0-1)
[2024-08-19] MEDS: metoPROLOL tartRATE 25 MG TAB PO SCH (21:13)
[2024-08-19] MEDS: LACTATED RINGERS 1000ML 1,000 ML IV SCH (21:14)
[2024-08-20] VITALS (13 sets, daily range): BP systolic 112–145; BP diastolic 65–83; PULSE 72–91; RESP 16–20; TEMP 98.4–99.6; O2SAT 96–98
[2024-08-20] MEDS: cloPIDOgrel 75MG TAB PO SCH (09:44)
--- NOTE | 2024-08-20 09:45 | PN ---
[facility] Cardiology Progress Note CARDIOLOGY PROGRESS NOTE August PROBLEMS: 1. Influenza A positive 2. Non ST-elevation myocardial infarction with no chest pain or EKG changes but mildly elevated troponin with a flat pattern and elevated CK 3. Aortic stenosis 4. Hypertension 5. Breast cancer status post remote mastectomy Blood pressure is ranging between 130 and 120 systolic. Heart rate is in the 70s. The patient is afebrile. No new labs available this morning. The patient continues on aspirin clopidogrel Lovenox for DVT prophylaxis metoprolol tartrate 2D echocardiogram shows an ejection fraction of 60-65% with grade 1 diastolic left ventricular dysfunction. She has severe aortic stenosis with a 90 mm peak gradient mean gradient of 54 mm Hg and valve area of 0.8 centimeters squared there was no mitral regurgitation and no pericardial effusion. Carotid Dopplers were ordered by the medical service and show no evidence of obstruction. I have explained the results of the echo to the patient and by telephone to a family member who was a physician. I would recommend that she recovered from the flu see me in the office. At that point we can discuss right and left heart catheterization to confirm aortic stenosis and look at her coronary anatomy. If appropriate for a TAVR valve she would also require a CT scan of the aortic root is be sure there was enough clearance for this type of valve. I will have her follow up in the office after discharge. We will add a statin to her regimen given her non ST elevation CT. ROMERO GILBERT MD Aug 20, 2024 09:45
[2024-08-20 10:53] LABS: HEMATOCRIT 37.8 % (36-48); MEAN CORPUSCULAR HEMOGLOBIN 30.9 pg (27.0-33.0); MEAN CORPUSCULAR HGB CONC 34.1 g/dL (32.0-36.0); MEAN CORPUSCULAR VOLUME 90.6 fL (79-99); RED BLOOD CELL COUNT(AUTO) 4.17 MIL/uL (4.00-5.50); WHITE BLOOD COUNT (AUTO) 3.6 K/uL (4.8-10.8)
[2024-08-20 11:02] LABS: CREATININE 0.8 mg/dL (0.5-1.0); MAGNESIUM 1.6 mg/dL (1.80-2.40); POTASSIUM 3.4 mmol/L (3.5-5.1)
--- NOTE | 2024-08-20 11:19 | PN ---
[facility] PROGRESS NOTE Date of Service: Aug 20, 2024 Time of Service: 10:49 SUBJECTIVE: [79-year-old female presented to the emergency department with extreme weakness and fatigue. She was admitted for positive Flu A, acute rhabdomyolysis and elevated troponins. Patient stated that she feels a little bit better from the time she was admitted. We will continue to monitor, continue with IV antibiotics and trending labs. Today patient was evaluated in the room, she still has the cough and congested. She still feels very weak and fatigue. She will be evaluated by Physical Therapy for weakness and ambulation safety. Patient is coughing and very congested. ] REVIEW OF SYSTEMS CONSTITUTIONAL: Denies fevers, chills, or night sweats. No unintentional weight loss reported. NEUROLOGICAL: Denies headache, amaurosis fugax, motor weakness, sensory deficit, vertigo/spinning sensation, gait abnormalities, or tremors. ENT: No hearing loss, otalgia, otorrhea, rhinitis, rhinorrhea, hoarseness, or sore throat. CARDIOVASCULAR: Denies any exertional angina, dyspnea on exertion, orthopnea, paroxysmal nocturnal dyspnea, palpitations, life-threatening arrhythmias, c laudication. PULMONARY: Denies any shortness of breath, cough, phlegm/sputum, hemoptysis, pleuritic chest pain. SLEEP: Denies morning headaches, daytime somnolence or napping. Denies difficulty falling asleep, staying asleep, waking from sleep. Denies knowledge of snoring. GASTROINTESTINAL: Denies any type of dysphagia to either liquids or solids. Denies nausea, vomiting, pyrosis, early satiety, abdominal pain, diarrhea, cons tipation, or changes in stool consistency or caliber. Denies coffee-ground emesis, hematemesis, hematochezia, or melanotic stools. GENITOURINARY: Denies frequency, urgency, nocturia, hematuria or incontinence (Storage/Irritative symptoms.) Low urinary stream, straining to void, urinary intermittency or hesitancy, splitting of the voiding stream, terminal dribbling. ENDOCRINOLOGIC: Denies polyuria, polydipsia, polyphagia or heat/cold intolerances. HEMATOLOGIC: Denies thrombophilia/previous clots, or coagulopathy/bleeding disorders. ONCOLOGIC: Denies personal history of malignancy. DERMATOLOGIC: Denies rashes or pruritus. PSYCHIATRIC: Denies any suicidal or homicidal ideation. Denies hallucinations. PHYSICAL EXAM GENERAL APPEARANCE: The patient is awake, alert, and oriented, in no acute cardiopulmonary distress. NEUROLOGICAL: Cranial nerves II-XII grossly intact. Motor is 5/5 in bilateral upper and lower extremities proximal to distal. No sensory deficits. HEENT: Face is symmetric. Pupils are equal and reactive. Extraocular movements are intact. NECK: Supple. No JVD. No thyromegaly. No submental, submandibular, pre- /postauricular, occipital or supraclavicular lymphadenopathy. CHEST: Normal chest expansion. No Telemetry. LUNGS: Absence of any rales, rhonchi or any wheezing. CARDIOVASCULAR: Regular. S1 and S2 normal. No appreciable rubs, murmurs or gallops. ABDOMEN: Soft, nontender, and nondistended. There is no rebound, voluntary guarding, or rigidity. : Deferred. No Tubbs. EXTREMITIES: Non-edematous and not cyanotic. No clubbing. Good capillary refill. SKIN: No skin breakdown. Vital Signs (last 8hr) Date Time Temp Pulse Resp B/P (MAP) Pulse Ox O2 Delivery O2 Flow Rate FiO2 08/20/24 08:17 98.4 79 20 135/76 97 Room Air 08/20/24 06:44 84 18 N/A Room Air 21 08/20/24 06:41 84 18 08/20/24 04:02 91 112/66 08/20/24 04:01 85 136/83 08/20/24 04:00 98.4 76 16 117/65 94 Room Air LABS: Laboratory: Test 08/20/24 08:47 08/19/24 20:30 08/19/24 16:23 08/19/24 12:32 Range/Units Total Creatine Kinase 699 *H 21-232 U/L Urine Color LIGHT-YELLOW YELLOW Urine Appearance CLEAR CLEAR Urine pH 5.0 5.0-8.[address] [place] 1.016 1.001-1.031 Urine Protein NEGATIVE NEGATIVE mg/dL Urine Glucose (UA) NEGATIVE NEGATIVE mg/dL Urine Ketones NEGATIVE NEGATIVE mg/dL Urine Occult Blood SMALL H NEGATIVE Urine Nitrate NEGATIVE NEGATIVE Urine Bilirubin NEGATIVE NEGATIVE mg/dL Urine Urobilinogen 0.2 0.2-1.0 mg/dL Urine Leukocyte Esterase NEGATIVE NEGATIVE Emily/uL Urine RBC 2-5 H 0-1 /HPF Urine WBC 0-1 0-1 /HPF Urine Squamous Epithelial Cells RARE 0-2 /HPF Urine Bacteria None None Seen /HPF Troponin I High Sensitivity 105 *H 4-50 ng/L Lactic Acid Level 1.5 0.8-2.5 mmol/L Test 08/19/24 02:19 08/18/24 19:48 08/18/24 18:26 Range/Units White Blood Count 5.3 4.8-10.8 K/uL Red Blood Count 4.02 4.00-5.50 MIL/uL Hemoglobin 12.4 12.0-16.0 g/dL Hematocrit 37.1 36-48 % Mean Corpuscular Volume 92.3 79-99 fL Mean Corpuscular Hemoglobin 30.8 27.0-33.0 pg Mean Corpuscular Hemoglobin Concent 33.4 32.0-36.0 g/dL Red Cell Distribution Width 13.6 11.0-15.5 % Platelet Count 194 130-400 K/uL Mean Platelet Volume 9.5 7.5-10.5 fL Immature Granulocyte % (Auto) 0.2 0-1 % Neutrophils (%) (Auto) 57.3 40.0-77.0 % Lymphocytes (%) (Auto) 24.8 21.0-51.0 % Monocytes (%) (Auto) 17.3 H 3.0-13.0 % Eosinophils (%) (Auto) 0.0 0.0-8.0 % Basophils (%) (Auto) 0.4 0.0-5.0 % Neutrophils # (Auto) 3.1 1.8-7.7 K/uL Lymphocytes # (Auto) 1.3 1.0-4.8 K/uL Monocytes # (Auto) 0.9 0.1-1.0 K/uL Eosinophils # (Auto) 0.00 0.00-0.70 K/uL Basophils # (Auto) 0.02 0.00-0.20 K/uL Absolute Immature Granulocyte (auto 0.01 0-1 K/uL Nucleated Red Blood Cells 0.0 0.0-0.19 % Sodium Level 140 136-145 mmol/L Potassium Level 3.0 *L 3.5-5.1 mmol/L Chloride Level 104 101-111 mmol/L Carbon Dioxide Level 27 21-32 mmol/L Blood Urea Nitrogen 12 7-18 mg/dL Creatinine 1.0 0.5-1.0 mg/dL Glomerular Filtration Rate Calc 57 >90 mL/min Random Glucose 100 70-105 mg/dL Total Calcium 8.3 L 8.5-10.1 mg/dL Phosphorus Level 4.1 2.5-4.9 mg/dL Magnesium Level 1.70 L 1.80-2.40 mg/dL Influenza Type A Antigen Positive For Type A *A NEGATIVE Influenza Type B Antigen Negative For Type B NEGATIVE SARS-CoV-2, RNA, NAAT NEGATIVE SARS CoV-2 NEGATIVE Group A Streptococcus Rapid negative NEGATIVE White Cell Morphology Comment See comments Prothrombin Time 11.5 9.6-11.6 SEC Prothromb Time International Ratio 1.03 0.85-1.15 B-Type Natriuretic Peptide 354 H 0-100 pg/mL Current Medications Medications (Trade) Dose Ordered Sig/Veronica Route PRN Reason Start Time Stop Time Status Last Admin Dose Admin Acetaminophen (TYLenol 325MG TAB) 650 mg Q6H PRN PO TEMPERATURE GREATER THAN 101.5 08/18/24 21:00 09/17/24 20:59 08/18/24 23:43 650 MG Albuterol (DUOneb) 1 UDVIAL [id number] IH 08/19/24 00:00 09/18/24 00:00 08/20/24 06:40 1 UDVIAL Aspirin (Aspirin 81mg Ec Tab) 81 mg DAILY PO 08/19/24 09:00 09/18/24 08:59 08/20/24 09:44 81 MG Atorvastatin Calcium (LIPItor 20MG) 20 mg DAILY PO 08/21/24 09:00 09/20/24 08:59 Clopidogrel Bisulfate (plaVIX 75MG) 75 mg DAILY PO 08/20/24 09:00 09/19/24 08:59 08/20/24 09:44 75 MG Enoxaparin Sodium (Lovenox) 40 mg DAILY SQ 08/19/24 09:00 09/18/24 08:59 08/20/24 09:45 40 MG Famotidine (Pepcid 20mg Tab) 20 mg DAILY PO 08/19/24 09:00 09/18/24 08:59 08/20/24 09:45 20 MG Guaifenesin (RobiTUSSin SUGAR-FREE 100 MG/ 5 ML UDCUP) 400 mg Q4H PRN PO cough 08/18/24 22:30 09/17/24 22:29 Hydralazine HCl (APRESOLine 20MG INJ) 10 mg Q6H PRN IV For:SBP above 160;DBP above 90 08/18/24 21:00 09/17/24 20:59 Lactated Ringer's 1,000 ml @ 50 mls/hr Q20H IV 08/19/24 12:30 09/18/24 12:29 08/20/24 09:45 50 MLS/HR Lactated Ringer's 1,000 ml @ 75 mls/hr [id number] IV 08/18/24 21:00 08/19/24 12:11 DC 08/18/24 21:27 75 MLS/HR Magnesium Sulfate 50 ml @ 0 mls/hr PROTOCOL IV 08/20/24 08:30 09/19/24 08:29 Magnesium Sulfate 50 ml @ 0 mls/hr PROTOCOL PRN IV h 08/19/24 03:30 08/20/24 08:08 DC Metoprolol Tartrate (loprESSOR) 25 mg BID PO 08/19/24 21:00 09/18/24 20:59 08/20/24 09:44 25 MG Morphine Sulfate (morPHINE 2MG SYG) 2 mg Q4H PRN IVP SEVERE PAIN (7-10) 08/18/24 21:00 08/25/24 20:59 Nitroglycerin (Nitroglycerin 1gm Oint) 0.5 inch Q8H TD 08/18/24 21:00 08/19/24 16:08 DC 08/19/24 05:29 0.5 INCH Ondansetron HCl (zoFRAN 4MG INJ) 4 mg Q6H PRN IV NAUSEA/VOMITING 08/18/24 21:00 09/17/24 20:59 Oseltamivir Phosphate (Tamiflu) 75 mg BID PO 08/19/24 09:00 08/24/24 08:59 08/20/24 09:44 75 MG Potassium Chloride 100 ml @ 100 mls/hr AD PRN IV POTASSIUM PROTOCOL 08/19/24 03:30 09/18/24 03:29 08/19/24 03:29 100 MLS/HR Potassium Chloride (K-Dur/Klor-Con 20meq) 20 meq AD PRN PO POTASSIUM PROTOCOL 08/19/24 03:30 09/18/24 03:29 08/19/24 16:43 20 MEQ Potassium Chloride (KCl 10% Elixir 20meq/15ml) 20 meq AD PRN PO POTASSIUM PROTOCOL 08/19/24 03:30 09/18/24 03:29 DIAGNOSTICS / RADIOLOGY: [ ] ASSESSMENT: [Sepsis, POA Positive for influenza A, POA Acute rhabdomyolysis, POA NSTEMI versus type 2 DE, POA Suspected troponin leak secondary to sepsis/influenza A Hypokalemia, POA Hyponatremia, POA Hypomagnesemia, POA ] PLAN: [Admit to medical telemetry Continue with Tamiflu Continue with IV fluids with LR at 50 mL/hour We will continue to trend TCK and troponin Appreciate cardiology recommendation 2DECHO reviewed Continue to monitor electrolytes and replete as necessary. C/w Aspirin and BB, we will start diuretics with Lasix 40 mg iv daily STAT labs today We will c/w GI ppx with famotidine and lovenox We will repeat labs in am PT eval and treat She is a full code Discussed case with Dr. Taylor above plan was formulated. ] ATTESTATION BY PHYSICIAN I have seen and examined the patient. I reviewed the documentation, medical decision making, and treatment plan as noted by the mid-level provider above. I agree with the findings and plan of care. JUDY TAYLOR MD, JANICE B AGPCSHELLY Aug 20, 2024 11:19
[2024-08-20] MEDS: PoTASSium chloRIDE 20MEQ ER 20 MEQ ERTAB PO ONE (12:07)
[2024-08-20] MEDS: guaiFENesin SUGAR-FREE 100 MG/5 ML UDCUP PO PRN (12:55)
--- NOTE | 2024-08-20 16:50 | HMCIMG ---
CHEST 2VWS CLINICAL HISTORY: congestion COMPARISON: 08/18/2024 TECHNIQUE: Two views of the chest were obtained. FINDINGS: Lungs are clear. The cardiac size and mediastinum are unremarkable. The bony structures are stable. IMPRESSION: No acute cardiopulmonary process identified.
[2024-08-20] MEDS: IpraTROPium/alBUTERol SULFATE 3 ML SOLUTION IH SCH (18:53)
[2024-08-20] MEDS: acetylCYSTeine10% 4ML VIAL IH SCH (20:51)
[2024-08-21] VITALS (12 sets, daily range): BP systolic 112–160; BP diastolic 54–86; PULSE 73–88; RESP 16–20; TEMP 97.9–98.5; O2SAT 97–98
[2024-08-21 04:27] LABS: HEMATOCRIT 36.6 % (36-48); MEAN CORPUSCULAR HEMOGLOBIN 30.5 pg (27.0-33.0); MEAN CORPUSCULAR HGB CONC 32.8 g/dL (32.0-36.0); MEAN CORPUSCULAR VOLUME 92.9 fL (79-99); RED BLOOD CELL COUNT(AUTO) 3.94 MIL/uL (4.00-5.50); RED CELL DISTRIBUTION WIDTH 13.6 % (11.0-15.5); WHITE BLOOD COUNT (AUTO) 4.3 K/uL (4.8-10.8)
[2024-08-21 04:59] LABS: CREATININE 0.8 mg/dL (0.5-1.0); MAGNESIUM 1.8 mg/dL (1.80-2.40); POTASSIUM 3.8 mmol/L (3.5-5.1)
[2024-08-21] MEDS: MAGNESIUM 2GM PREMIX 50ML 50 ML IV SCH (05:22)
[2024-08-21] MEDS: atorVAStatin 20 MG TABLET PO SCH (09:26)
[2024-08-21] MEDS ORDERED: ATOR20TA65 PO (12:30)
[2024-08-21] MEDS ORDERED: OSEL75 PO (12:30)
[2024-08-21] MEDS ORDERED: CLOP-31 PO (12:30)
[2024-08-21] MEDS ORDERED: FAMO20TA8 PO (12:30)
[2024-08-21] MEDS ORDERED: AEC81 PO (12:30)
[2024-08-21] MEDS ORDERED: METO25 PO (12:30)
--- NOTE | 2024-08-21 12:34 | DS ---
Discharge Summary Hospital Course Summary: DATE OF ADMISSION:[08/18/2024] DATE OF DISCHARGE:[08/21/2024] DISPOSITION:[Home] CONDITION:[Medically stable] CONSULTANTS:[Certified Dental Assistant] FOLLOW UP APPOINTMENTS:[PCP 2 to 3 days. Certified Dental Assistant within one week] PROCEDURES:[] None IMAGING: report attached to summary MICROBIOLOGY: report attached to summary ACTIVITY:[Independent] HOME MEDICATIONS: see med recc NEW MEDICATIONS:[See med rec] EMERGENCY INSTRUCTIONS: The patient was instructed to present to the nearest Emergency departmentr or call 911 once their symptoms will return or worsen [employer] Specialist(s): 79-year-old female presented to the emergency department with extreme weakness and fatigue. She was admitted for positive Flu A, acute rhabdomyolysis and elevated troponins. Patient stated that she feels a little bit better from the time she was admitted. We will continue to monitor, continue with IV antibiotics and trending labs Throughout the hospitalization patient was evaluated by clerical support and all the results of the 2D echo were explained to the patient by phone and family member who was a physician by clerical support. Certified Dental Assistant at this moment is recommending to recover from the flu 1st and then follow up outpatient in the office for possible right and left heart catheterization it is a [place] to confirm aortic stenosis and look at her coronary anatomy. If appropriate for TAVR valve she would also require CT scan of aortic root. Patient was evaluated by nurse practitioner all the labs and radiology was reviewed as well. Patient is cleared to be discharged home follow up with PCP 2 to 3 days. Follow up with clerical support within one week. Procedure(s): REVIEW OF SYSTEMS CONSTITUTIONAL: Denies fevers, chills, or night sweats. No unintentional weight loss reported. NEUROLOGICAL: Denies headache, amaurosis fugax, motor weakness, sensory deficit, vertigo/spinning sensation, gait abnormalities, or tremors. ENT: No hearing loss, otalgia, otorrhea, rhinitis, rhinorrhea, hoarseness, or sore throat. CARDIOVASCULAR: Denies any exertional angina, dyspnea on exertion, orthopnea, paroxysmal nocturnal dyspnea, palpitations, life-threatening arrhythmias, claudication. PULMONARY: Denies any shortness of breath, cough, phlegm/sputum, hemoptysis, pleuritic chest pain. SLEEP: Denies morning headaches, daytime somnolence or napping. Denies difficulty falling asleep, staying asleep, waking from sleep. Denies knowledge of snoring. GASTROINTESTINAL: Denies any type of dysphagia to either liquids or solids. Denies nausea, vomiting, pyrosis, early satiety, abdominal pain, diarrhea, constipation, or changes in stool consistency or caliber. Denies coffee-ground emesis, hematemesis, hematochezia, or melanotic stools. GENITOURINARY: Denies frequency, urgency, nocturia, hematuria or incontinence (Storage/Irritative symptoms.) Low urinary stream, straining to void, urinary intermittency or hesitancy, splitting of the voiding stream, terminal dribbling. ENDOCRINOLOGIC: Denies polyuria, polydipsia, polyphagia or heat/cold intolerances. HEMATOLOGIC: Denies thrombophilia/previous clots, or coagulopathy/bleeding disorders. ONCOLOGIC: Denies personal history of malignancy. DERMATOLOGIC: Denies rashes or pruritus. PSYCHIATRIC: Denies any suicidal or homicidal ideation. Denies hallucinations. Assessment/Plan: ASSESSMENT: [Sepsis, POA-resolved Positive for influenza A, POA Acute rhabdomyolysis, POA-improved NSTEMI versus type 2 HI, POA Suspected troponin leak secondary to sepsis/influenza A Hypokalemia, POA Hyponatremia, POA Hypomagnesemia, POA ] Time spent arranging discharge: 31-60 minutes ATTESTATION BY PHYSICIAN I have seen and examined the patient. I reviewed the documentation, medical decision making, and treatment plan as noted by the mid-level provider above. I agree with the findings and plan of care. Joy Adam MD, KATARZYNA B PLAY BACK OPERATOR Aug 21, 2024 12:34
--- NOTE | 2024-08-21 17:30 | NUR ---
PATIENT DISCHARGED HOME WITH COPIES OF DISCHARGE SUMMARY AND FPLLOW UP APPOINTMENTS AND MEDICATIONS TO CONTINUE TAKING.
== END 2024-08-21 17:30 | disposition home or self-care (01) | DRG 871 ==
LOC: EDH 18:02 → EDHIP 20:49 → 4AH 08-19 00:15
PROVIDERS: ADMIT Internal Medicine; ATTEND Internal Medicine
DX: A41.9 Sepsis, unspecified organism (principal); I21.A1 Myocardial infarction type 2; M62.82 Rhabdomyolysis; E87.1 Hypo-osmolality and hyponatremia; I42.2 Other hypertrophic cardiomyopathy; Z20.822 Contact with and (suspected) exposure to COVID-19; J10.1 Influenza due to other identified influenza virus with other respiratory manifestations; E87.6 Hypokalemia; I44.0 Atrioventricular block, first degree; I35.0 Nonrheumatic aortic (valve) stenosis; I10 Essential (primary) hypertension; E86.0 Dehydration; E83.42 Hypomagnesemia; Z92.3 Personal history of irradiation; Z90.11 Acquired absence of right breast and nipple; Z85.3 Personal history of malignant neoplasm of breast; Z79.82 Long term (current) use of aspirin; Z51.5 Encounter for palliative care
CPT/HCPCS: 36415; 71045; 71046; 80048; 81001; 82550; 83605; 83735; 83880; 84100; 84484; 85025; 85027; 85610; 87040; 87635; 87804; 87880; 93005; 93306; 93356; 93880; 94640; 94664; G0378; J1650; J3475; J3480; J7120; J7608

== ENCOUNTER → 2024-11-27 | Outpatient (CLI) | payer OTHER ==
[~2024-11-27] MED LIST: ASPI-1197 PO; IOHEXOL 350 MG/ML 100ML INFUS..BTL IV ONE; METO25 PO
--- NOTE | 2024-11-27 16:42 | HMCIMG ---
Exam Type: CT angiogram chest, abdomen and pelvis and proximal lower extremities with contrast Clinical Information: Comparison: Contrast: Omnipaque 350, cc, IV Technique: Routine helical scanning at 5mm collimation through the chest, abdomen and pelvis after contrast administration. In addition, sagittal and coronary formations of the abdomen pelvis and surface rendering three-dimensional reconstructions of the abdominal aorta and the bilateral lower extremity arterial system were performed. Volumetric spin and MIP rendering of the abdominal aorta and the lower extremity arterial system is done bilaterally as well. Findings: The bolus is of good quality for diagnosis of pulmonary embolism. There are no pulmonary arterial filling defects. The lung parenchyma is normal. No pleural effusion.. The central airways are widely patent. There is no axillary, mediastinal or hilar adenopathy. The heart and great vessels opacify normally. Limited evaluation of the abdomen demonstrates no gross abnormalities. Review of bone windows demonstrates no osteoblastic or lytic lesions. The kidneys are unremarkable. No evidence of nephro or ureterolithiasis is found. No hydronephrosis or ureteral dilatation is seen. The liver is unremarkable. It shows no focal masses. The spleen shows normal size and attenuation. It is not enlarged. The pancreas shows normal appearance without masses, atrophy, or calcifications, or duct prominence. There is no peripancreatic fluid. The gallbladder is unremarkable. It shows no calculi. There is no pericholecystic stranding. The gallbladder wall is not thickened. The adrenals are normal. No masses are seen. The small and large bowel and pelvic viscera are unremarkable. The appendix is unremarkable. There is no retroperitoneal lymphadenopathy or lymphadenopathy elsewhere throughout the abdomen and pelvis. The aorta and inferior vena cava and other vascular structures are unremarkable. The bony structures unremarkable for the patient's age. The abdominopelvic wall soft tissue structures and muscular compartments are unremarkable. There is no evidence of aneurysmal dilatation of the aorta. There is atheromatous plaque without occlusion. There is evidence of calcification of the aortic valve consistent with given history of acquired aortic stenosis. After contrast administration, there is no abnormal enhancement. IMPRESSION: Findings consistent with acquired aortic stenosis and calcification of the valve.
--- NOTE | 2024-11-29 17:23 | CARDIOLOGY ---
RAD REPORT: CORNARY CT ANGIO RADIOLOGY REPORT: CORONARY CT ANGIOGRAPHY DATE: Nov 29, 2024 QUALITY: Excellent CLINICAL HISTORY AND INDICATION: [ TAVR ] TECHNIQUE: After obtaining a preliminary shop superintendent image, contrast imaging performed on an [employer] [id number] scanner. A dedicated, limited window, coronary imaging protocol was used, with single breath-hold, retrospective ECG gating, and automated arrhythmia rejection. 100 cc of low osmolar contrast agent: Omnipaque 350 was delivered via a 18-gauge IV catheter in the right antecubital fossa, using a power injector and followed by 60 cc of normal saline bolus as a chaser. Collimated images were reformatted at 0.5 mm intervals, and sent to an offline independent workstation for interpretation, using 3D anatomic reconstructions: Curved multiplanar reconstructions, maximum intensity projections, and multiplanar imaging. No metoprolol was administered prior to scanning due to low baseline heart rate. No SL nitroglycerin was given. CORONARY ARTERY DESCRIPTIONS: The coronary arteries arise in normal position. Left main coronary artery: Normal caliber vessel that bifurcates into the LAD and LCx. No stenosis. Left anterior descending coronary artery: Normal caliber vessel and gives rise to diagonal and septal branches. No stenosis. Left circumflex coronary artery: Normal caliber, nondominant and gives rise to a large OM branch. No stenosis. Right coronary artery: Large, dominant vessel giving rise to the PL and PDA branches. No stenosis. CAD-RADs: 0, absence of CAD. Thoracic Aorta: Thoracic Aorta. Latasha Aparicio MD Cardiovascular Disease [facility] LATASHA APARICIO MD Nov 29, 2024 17:23
== END | disposition home or self-care (01) ==
LOC: RAH 10:23
PROVIDERS: ATTEND Internal Medicine Cardiovascular Disease
DX: I26.99 Other pulmonary embolism without acute cor pulmonale (principal); I70.90 Unspecified atherosclerosis; I35.0 Nonrheumatic aortic (valve) stenosis
CPT/HCPCS: 74174; 75574; Q9967